=== PATIENT | male | born 1970 | race Two or more races ===

== ENCOUNTER 2024-09-11 14:12 | Emergency (ER) | payer OTHER ==
[~2024-09-11] VITALS: Ht 177.8 cm; Wt 99.8 kg
[2024-09-11 15:36] VITALS: BP 100/68; O2SAT 99
[2024-09-11] MEDS ORDERED: 0.9 % SODIUM CHLORIDE 1,000 ML IV SCH (16:15)
[2024-09-11] MEDS ORDERED: KETOROLAC TROMETHAMINE 30 MG VIAL IV ONE (16:15)
[2024-09-11] MEDS ORDERED: TAMSULOSIN HCL 0.4 MG CAP PO ONE ×2 (16:15→16:18)
[2024-09-11] MEDS ORDERED: ONDANSETRON HCL 2 MG/ML VIAL IV ONE (16:15)
[2024-09-11] MEDS ORDERED: ONDANSETRON HCL 2 MG/ML VIAL ONE (16:19)
[2024-09-11] MEDS ORDERED: KETOROLAC TROMETHAMINE 30 MG VIAL ONE (16:19)
[2024-09-11 16:36] LABS: HEMATOCRIT 42.4 % (39.0-48.0); HEMOGLOBIN 13.9 g/dL (13-16.00); MEAN CELL VOLUME 86.9 fL (80.0-100.00); MEAN CORPUSCULAR HEMOGLOBIN 28.5 pg (27.00-32.0); MEAN CORPUSCULAR HGB CONC 32.8 g/dl (32.0-36.0); PLATELET COUNT 206 K/uL (150-450); RED BLOOD COUNT 4.88 M/uL (4.00-6.00); RED CELL DISTRIBUTION WIDTH 14.1 % (11.5-14.5)
[2024-09-11 17:07] LABS: PH,URINE 7.5 (5.0-8.0); URINE APPEARANCE Clear; URINE BACTERIA 128.5 uL (0.0-1933); URINE BILIRRUBIN Negative (NEGATIVE); URINE BLOOD Negative; URINE COLOR Yellow; URINE GLUCOSE Negative (NEGATIVE); URINE KETONE Negative (NEGATIVE); URINE LEUKOCYTE Negative; URINE NITRATE Negative; URINE RBC 8.8 uL (0.0-20.8); URINE UROBILINOGEN 0.2 E.U./dl
[2024-09-11 17:08] LABS: ALBUMIN 3.5 gm/dL (3.4-5.0); BILIRUBIN TOTAL 0.28 mg/dL (0.3-1.2); CALCIUM 9.1 mg/dL (8.5-10.1); CREATININE SERUM 1.34 mg/dL (0.70-1.30); GFR 55.76; GLOBULINA 3.6 G/DL (2.4-3.5); POTASSIUM 4.37 mEq/L (3.5-5.1); TOTAL PROTEIN 7.1 gm/dL (6.4-8.2)
[2024-09-11 17:28] LABS: URINE CAST 0.14 uL (0.0-1.40); URINE PROTEIN 100 (NEGATIVE)
[2024-09-11 17:46] LABS: URINE SPERM MANY
[2024-09-11] MEDS ORDERED: NORFLEX100MG PO (19:23)
[2024-09-11] MEDS ORDERED: DICLOFENAC SODI75 MG PO (19:23)
== END 2024-09-11 19:37 | disposition home or self-care (01) ==
LOC: ER 14:12
PROVIDERS: General Practice
DX: R10.31 Right lower quadrant pain (principal)